=== PATIENT | male | born 1990 | race Caucasian/White ===

== ENCOUNTER 2016-05-12 19:12 | Emergency (ER) | payer BC ==
[2016-05-12 19:26] VITALS: RESP 16
[2016-05-12] MEDS ORDERED: NS 1,000 ML IV ONE (20:07)
[2016-05-12 20:13] LABS: % IMMATURE GRANULYOCYTES 0.1 % (0.0-1.1); ABSOLUTE IMMATURE GRANULOCYTES 0.01 10^3/uL (0.00-0.10); ADD DIFF? NO; ADD MORPH? NO; ADD SCAN? NO; ATYPICAL LYMPHOCYTE FLAG 30 (0-99); FRAGMENT RBC FLAG 0 (0-99); HEMATOCRIT 43.6 % (40.0-51.0); HEMOGLOBIN 15.2 g/dL (13.7-17.5); LEFT SHIFT FLG 0 (0-99); LIPEMIA HEMOLYSIS FLAG 90 (0-99); MEAN CELL HEMOGLOBIN 29.5 pg (27.9-34.1); MEAN CELL HEMOGLOBIN CONCENTR. 34.9 g/dL (32.4-36.7); MEAN CELL VOLUME 84.7 fL (81.5-99.8); MEAN PLATELET VOLUME 9.6 fL (8.7-11.7); PLATELET CLUMPS FLAG 0 (0-99); PLATELET COUNT 299 10^3/uL (150-400); RED BLOOD CELL COUNT 5.15 10^6/uL (4.40-6.38); RED CELL DISTRIBUTION WIDTH 11.9 % (11.5-15.2)
[2016-05-12 20:29] LABS: ANION GAP 12 mEq/L (8-16); CALCIUM 10.2 mg/dL (8.5-10.4); CARBON DIOXIDE 29 mEq/l (22-31); CHLORIDE 99 mEq/L (97-110); CREATININE 0.9 mg/dL (0.7-1.3); GLOMERULAR FILTRATION RATE > 60; GLUCOSE 88 mg/dL (70-100); POTASSIUM 4.2 mEq/L (3.5-5.2); SODIUM 140 mEq/L (134-144)
[2016-05-12] MEDS ORDERED: IOPAMIDOL (ISOVUE 370) 100 ML BTL IV ONE (21:21)
--- NOTE | 2016-05-12 21:22 | EDPHY ---
H & P Time Seen by Provider: 05/12/16 21:12 HPI/ROS: CHIEF COMPLAINT: Left-sided chest pain HISTORY OF PRESENT ILLNESS: 25-year-old male presents with a 2 day history of left-sided chest pain. Left-sided chest pain 2 days ago pain has been constant since then. The pain is rated 5/10 and increases with deep inspiration. He was seen [facility] urgent care just prior to arrival. Chest x-ray showed left basilar streakiness possibly consistent with pneumonia versus pulmonary infarct. He was sent for a CT pulmonary angiogram for further evaluation. He denies shortness of breath, abdominal pain, nausea or vomiting. REVIEW OF SYSTEMS: Constitutional: No fever, no chills Eyes: No visual changes ENT: No sore throat Respiratory: No cough Gastrointestinal: No nausea, no vomiting, no abdominal pain Genitourinary: no dysuria Musculoskeletal: No leg pain or swelling Skin: No rash Neurological: No headache, no numbness, no weakness Psychiatric: no anxiety Past Medical/Surgical History: Denies Social History: No recent alcohol Smoking Status: Current some day smoker Physical Exam: General Appearance: Alert, does not appear in pain Eyes: Pupils equal and round, no conjunctival pallor or injection ENT, Mouth: Mucous membranes moist Neck: Normal inspection Respiratory: Lungs are clear to auscultation Cardiovascular: Regular rate and rhythm Gastrointestinal: Abdomen is soft and nontender Neurological: A&O, nonfocal, normal gait Skin: Warm and dry, no rash Extremities: Nontender, no pedal edema Psychiatric: flat affect Constitutional: Initial Vital Signs Temperature (C) 36.8 C 05/12/16 19:23 Heart Rate 72 05/12/16 19:23 Respiratory Rate 16 05/12/16 19:23 Blood Pressure 107/61 05/12/16 19:23 O2 Sat (%) 95 05/12/16 19:23 O2 Delivery Mode Room Air Allergies/Adverse Reactions: No Known Allergies Allergy (Unverified 05/12/16 19:22) Home Medications: Medication Instructions Recorded NK [No Known Home Meds] 05/12/16 Medical Decision Making - Diagnostics EKG Interpretation: EKG interpreted by me reveals normal sinus rhythm, no ST or T segment changes. Imaging: CT pulmonary angiogram read by Dr. Lee is normal. ED Course/Re-evaluation: CT results discussed with the patient. No evidence of pulmonary embolism. Ibuprofen instructions given. Differential Diagnosis: Differential diagnosis includes though it is not limited to pneumonia, pneumothorax, pulmonary embolism, aortic dissection, pericarditis, acute coronary syndrome. - Data Points Laboratory Results: Laboratory Results 05/12/16 20:00 05/12/16 20:00 Medications Given: Discontinued Medications Acetaminophen/Hydrocodone Bitart ([place] 5/325mg [employer]ack#6) 1 btl TAKEHOME EDNOW ONE Stop: 05/12/16 21:55 Last Admin: 05/12/16 22:09 Dose: 1 btl Sodium Chloride (Ns) 1,000 mls @ 0 mls/hr IV ONCE ONE PRN Reason: Wide Open Stop: 05/12/16 20:08 Last Admin: 05/12/16 20:08 Dose: 1,000 mls Ketorolac Tromethamine (Toradol) 30 mg IVP EDNOW ONE Stop: 05/12/16 21:58 Last Admin: 05/12/16 22:11 Dose: 30 mg Departure - Departure Disposition: Home, Routine, Self-Care Clinical Impression: Chest pain Qualifiers: Chest pain type: other chest pain Qualifier Code: (R07.89) Other chest pain Condition: Good Instructions: Chest Pain (ED) Additional Instructions: Ibuprofen 600 mg 3 times daily while the pain persists. Referrals: Terell Valles DO [Doctor of Osteopathy] - As per Instructions
[2016-05-12] MEDS ORDERED: HYDROCOD/APAP 5/325 PREPACK#6 BTL TAKEHOME ONE (21:54)
[2016-05-12] MEDS ORDERED: KETOROLAC 30 MG/1 ML SDV IVP ONE (21:57)
--- NOTE | 2016-05-12 22:00 | CPEKG ---
Heart Rate: 57 RR Interval: 1053 P-R Interval: 164 QRSD Interval: 80 QT Interval: 380 QTC Interval: 370 P Independence: -10 QRS Independence: 44 T Wave Independence: 46 EKG Severity - NORMAL ECG - EKG Impression: SINUS RHYTHM Electronically Signed By: Zonia Sharif 12-May-2016 22:03:03
--- NOTE | 2016-05-12 22:05 | CT ---
CT Angiogram Chest, With IV Contrast HISTORY: Chest pain. Possible PE. TECHNIQUE: 1.25-mm helical images were obtained of the chest from the lung apices through the lung b ases. This was done postintravenous contrast, with 90 mL Isovue-370 contrast. Multiplanar and 3D ev aluation was performed at the workstation. Radiation dose reduction technique was utilized. FINDINGS Pulmonary Angiogram: There is motion artifact at the lung bases limiting evaluation. Otherwise, no findings to suggest pulmonary embolus. No evidence for aortic dissection or aneurysm of the thoracic aorta. CHEST: The heart size is within normal limits. No evidence for a pericardial effusion. The lungs a re clear. No evidence for a pleural effusion or pneumothorax. No significant mediastinal or hilar l ymphadenopathy. No significant osseous abnormality. The visualized upper abdomen is unremarkable. IMPRESSION: No evidence for a pulmonary embolus although limitation secondary to motion artifact at the lung bases. Results discussed with Dr. Zonia Sharif.
[2016-05-12 22:35] VITALS: BP 110/68; PULSE 76; TEMP 97.9; O2SAT 97
== END 2016-05-12 22:34 | disposition home or self-care (01) ==
DX: R07.89 Other chest pain (principal); F17.200 Nicotine dependence, unspecified, uncomplicated
CPT/HCPCS: 96374; J1885; Q9967

== ENCOUNTER → 2016-05-12 | Outpatient (CLI) | payer BC ==
--- NOTE | 2016-05-12 18:56 | DX ---
PA and lateral chest History: Chest pain. Comparison: None available. Findings: There are streaky left basilar opacities. There is no pneumothorax or pleural effusion. Hea rt size is normal. The bones are normal. Impression: Streaky left basilar opacities which could be related to atelectasis, pneumonia, or infar ct. The patient will undergo CT subsequently Findings discussed with Lana Mack today at 1850 hours.
== END ==
LOC: BMCIMAGING 18:17
PROVIDERS: ATTEND Family Medicine
DX: R07.9 Chest pain, unspecified (principal); R91.8 Other nonspecific abnormal finding of lung field